=== PATIENT | female | born 1960 | race Caucasian/White ===

== ENCOUNTER 2017-12-20 13:27 | Emergency (ER) | payer OTHER ==
[~2017-12-20] VITALS: Ht 172.7 cm; Wt 77.1 kg
[~2017-12-20 13:27] MED LIST: CRUTCH1 EACH MC; XANAX 0.5 MG0.5 MG PO
[2017-12-20] MEDS ORDERED: HYDROCHLOROTH12.5 M1 PO (13:40)
[2017-12-20] MEDS ORDERED: NABUMETONE 750750 M1 PO (15:24)
[2017-12-20] MEDS ORDERED: ROBAXIN 750 MG750 M1 PO (15:24)
[2017-12-20 15:46] VITALS: BP 128/81
== END 2017-12-20 15:48 | disposition home or self-care (01) ==
LOC: M.ERS 13:27
DX: S16.1XXA Strain of muscle, fascia and tendon at neck level, initial encounter (principal); S29.012A Strain of muscle and tendon of back wall of thorax, initial encounter; S40.011A Contusion of right shoulder, initial encounter; S20.211A Contusion of right front wall of thorax, initial encounter; S50.01XA Contusion of right elbow, initial encounter; F41.9 Anxiety disorder, unspecified; Z88.2 Allergy status to sulfonamides; Z88.1 Allergy status to other antibiotic agents; V89.2XXA Person injured in unspecified motor-vehicle accident, traffic, initial encounter; Y93.89 Activity, other specified; Y92.89 Other specified places as the place of occurrence of the external cause; Y99.8 Other external cause status